=== PATIENT | female | born 1955 | race Caucasian/White ===

== ENCOUNTER 2018-01-26 09:34 | Inpatient (IN) | payer BC ==
[2018-01-26] VITALS (11 sets, daily range): BP systolic 125–155; BP diastolic 58–93; PULSE 89–109; RESP 16–20; TEMP 98.5–101.9; O2SAT 95–98
[~2018-01-26] VITALS: Ht 157.5 cm; Wt 62.5 kg
--- NOTE | 2018-01-26 10:46 | PD ---
HPI Chief Complaint: Complaint Time Seen by Provider: 10:29 Travel History International Travel<30 days: No Contact w/Intl Traveler<30days: No Traveled to known affect area: No History of Present Illness HPI Patient presents to the emergency department for urinary tract infection. I spoke to Morteza Macedo the patient's primary care doctor's nurse practitioner who advised that the patient had a fever of 104 on yesterday and a history of recurrent urinary tract infections. The urine was sent for culture and sensitivity and the sensitivity is only to gentamicin, imipenem, Zosyn, and cefepime. Patient states that she has a history of recurrent urinary tract infections that began in July. Found to be E. coli that that time was treated with Cipro. He came back in September and she was given more Cipro. Return the first week of December she took 7 days of Cipro without relief of symptoms. Positive fever,positive chills, but denies abdominal pain or nausea/ vomiting. 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 PFSH Past Medical History Cardiovascular Problems: Yes High Cholesterol: Yes Diminished Hearing: No Hypertension: Yes ?: Not Menopausal: Yes Past Surgical History Gynecologic Surgery: Yes ("a/p vaginal repair, cystoscopy") Hysterectomy: Yes Social History Alcohol Use: No Tobacco Use: No Substance Use: No Allergies-Medications (Allergen,Severity, Reaction): Coded Allergies: Penicillins (Verified Allergy, Unknown, 01/26/18) "rash head to toe" Sulfa (Sulfonamide Antibiotics) (Verified Allergy, Unknown, 01/26/18) rash "head to Toe" Review of Systems Except as stated in HPI: all other systems reviewed are Neg Physical Exam Narrative GENERAL: No acute distress. SKIN: Focused skin assessment warm/dry. HEAD: Atraumatic. Normocephalic. EYES: Pupils equal and round. No scleral icterus. No injection or drainage. ENT: No nasal bleeding or discharge. Mucous membranes pink and moist. NECK: Trachea midline. No JVD. CARDIOVASCULAR: Regular rate and rhythm. No murmur appreciated. RESPIRATORY: No accessory muscle use. Clear to auscultation. Breath sounds equal bilaterally. GASTROINTESTINAL: Abdomen soft, non-tender, nondistended. Hepatic and splenic margins not palpable. Positive right CVA tenderness. MUSCULOSKELETAL: No obvious deformities. No clubbing. No cyanosis. No edema. NEUROLOGICAL: Awake and alert. No obvious cranial nerve deficits. Motor grossly within normal limits. Normal speech. PSYCHIATRIC: Appropriate mood and affect; insight and judgment normal. Data Data Last Documented VS Vital Signs Date Time Temp Pulse Resp B/P (MAP) Pulse Ox O2 Delivery O2 Flow Rate FiO2 01/26/18 14:11 149/65 (93) 01/26/18 12:30 94 17 96 01/26/18 11:40 101.9 01/26/18 09:45 Room Air Orders Orders Complete Blood Count With Diff (01/26/18 10:40) Comprehensive Metabolic Panel (01/26/18 10:40) Blood Culture (01/26/18 10:40) Urinalysis - C+S If Indicated (01/26/18 10:40) Urine Culture (01/26/18 10:40) Acetaminophen (Tylenol) (01/26/18 11:30) Admit Order (Ed Use Only) (01/26/18 14:34) Sodium Chlor 0.9% 1000 Ml Inj (Ns 1000 M (01/26/18 14:45) Lactic Acid (01/26/18 14:35) Labs Laboratory Tests Test 01/26/18 10:55 01/26/18 13:00 White Blood Count 14.4 TH/MM3 Red Blood Count 4.08 MIL/MM3 Hemoglobin 12.7 GM/DL Hematocrit 37.3 % Mean Corpuscular Volume 91.5 FL Mean Corpuscular Hemoglobin 31.2 PG Mean Corpuscular Hemoglobin Concent 34.1 % Red Cell Distribution Width 12.8 % Platelet Count 456 TH/MM3 Mean Platelet Volume 7.5 FL Neutrophils (%) (Auto) 78.1 % Lymphocytes (%) (Auto) 14.6 % Monocytes (%) (Auto) 6.9 % Eosinophils (%) (Auto) 0.2 % Basophils (%) (Auto) 0.2 % Neutrophils # (Auto) 11.3 TH/MM3 Lymphocytes # (Auto) 2.1 TH/MM3 Monocytes # (Auto) 1.0 TH/MM3 Eosinophils # (Auto) 0.0 TH/MM3 Basophils # (Auto) 0.0 TH/MM3 CBC Comment DIFF FINAL Differential Comment Urine Color YELLOW Urine Turbidity CLEAR Urine pH 7.0 Urine Specific [place] 1.014 Urine Protein TRACE mg/dL Urine Glucose (UA) NEG mg/dL Urine Ketones NEG mg/dL Urine Occult Blood MOD Urine Nitrite NEG Urine Bilirubin NEG Urine Urobilinogen LESS THAN 2.0 MG/DL Urine Leukocyte Esterase NEG Urine RBC 7 /hpf Urine WBC 2 /hpf Urine Squamous Epithelial Cells <1 /hpf Microscopic Urinalysis Comment CULT NOT INDICATED Blood Urea Nitrogen 10 MG/DL Creatinine 0.54 MG/DL Random Glucose 90 MG/DL Total Protein 7.4 GM/DL Albumin 3.4 GM/DL Calcium Level 8.8 MG/DL Alkaline Phosphatase 65 U/L Aspartate Amino Transf (AST/SGOT) 22 U/L Alanine Aminotransferase (ALT/SGPT) 20 U/L Total Bilirubin 0.4 MG/DL Sodium Level 135 MEQ/L Potassium Level 4.1 MEQ/L Chloride Level 100 MEQ/L Carbon Dioxide Level 27.1 MEQ/L Anion Gap 8 MEQ/L Estimat Glomerular Filtration Rate 114 ML/MIN MDM Medical Decision Making Medical Screen Exam Complete: Yes Emergency Medical Condition: Yes Interpretation(s) CBC: Elevated white count, UA: Moderate blood, ECG (ordered by admit MD): SR, rate 92, no ST/T changes Differential Diagnosis Urosepsis, UTI, pyelonephritis, renal failure, acute kidney injury Narrative Course Patient presented to the emergency department with UTI. Will check CBC, blood cultures, UA and urine culture, and chemistry. 1117: Patient requested Tylenol for pain, given 650 mg p.o. Tylenol. 1435: Patient given 1 L IV normal saline, lactate ordered and pending, and 1 g of meropenem IV. 1545: Meropenem infusing. Patient without rash, face/tongue swelling, dyspnea. Sepsis Criteria SIRS Criteria (2 or more): Temp > 100.9 or < 96.8, WBC > 53244, < 4000 or > 10 % bands Sepsis Criteria (SIRS+source): Infect source susp/known Physician Communication Physician Communication Spoke to Mariela Calderon, the patient's primary care physician's mid-level provider. Stated that urine culture sensitivity showed that the urine was sensitive to gentamicin, imipenem, Zosyn, and cefepime. Also advised that patient had a fever 104 yesterday. She started her on Keflex yesterday. Sent urine culture results from primary care doctor's office (urine was collected on 01/23/18 and received by lab on 01/24/18) and was positive for E. coli, ESBL, sensitive to cefepime, gentamicin, imipenem, and Zosyn. Diagnosis Primary Impression: Urinary tract infection Qualified Codes: N10 - Acute pyelonephritis Additional Impression: Sepsis Qualified Codes: A41.51 - Sepsis due to Escherichia coli [e. coli] Admitting Information Admitting Physician Requests: Admit Condition: Stable Pepper Mcgraw MD January 26, 2018 10:46
[2018-01-26 11:25] LABS: AUTOMATED NEUTROPHIL # 11.3 TH/MM3 (1.8-7.7); BASOPHIL % 0.2 % (0.0-2.0); EOSINOPHIL % 0.2 % (0.0-4.0); HEMATOCRIT 37.3 % (35.0-46.0); HEMOGLOBIN 12.7 GM/DL (11.6-15.3); LYMPH % 14.6 % (9.0-44.0); LYMPHOCYTE # 2.1 TH/MM3 (1.0-4.8); MEAN CELL VOLUME 91.5 FL (80.0-100.0); MEAN CORPUSCULAR HEMOGLOBIN 31.2 PG (27.0-34.0); MEAN CORPUSCULAR HGB CONC 34.1 % (32.0-36.0); MEAN PLATELET VOLUME 7.5 FL (7.0-11.0); MONO % 6.9 % (0.0-8.0); NEUT % 78.1 % (16.0-70.0); PLATELET COUNT 456 TH/MM3 (150-450); RED BLOOD COUNT 4.08 MIL/MM3 (4.00-5.30); RED CELL DISTRIBUTION WIDTH 12.8 % (11.6-17.2); WHITE BLOOD COUNT 14.4 TH/MM3 (4.0-11.0)
[2018-01-26] MEDS ORDERED: ACETAMINOPHEN 325 MG TAB PO ONE (11:30)
[2018-01-26 11:34] LABS: BILIRUBIN, URINE NEG (NEG); BLOOD, URINE MOD (NEG); GLUCOSE,URINE NEG (NEG); KETONE, URINE NEG (NEG); NITRITE,URINE NEG (NEG); SQUAMOUS EPITHELIAL CELL URINE <1 /hpf (0-5); URINE COLOR YELLOW (YELLW/STRAW); URINE LEUKOCYTE ESTERASE NEG (NEG)
[2018-01-26 13:34] LABS: ALKALINE PHOSPHATASE 65 U/L (45-117); TOTAL BILIRUBIN ADULT 0.4 MG/DL (0.2-1.0); TOTAL PROTEIN 7.4 GM/DL (6.4-8.2)
[2018-01-26 13:50] LABS: ALBUMIN 3.4 GM/DL (3.4-5.0); ALT (GPT) 20 U/L (10-53); AST (GOT) 22 U/L (15-37); BICARBONATE 27.1 MEQ/L (21.0-32.0); BLOOD UREA NITROGEN 10 MG/DL (7-18); CALCIUM 8.8 MG/DL (8.5-10.1); CHLORIDE 100 MEQ/L (98-107); CREATININE 0.54 MG/DL (0.50-1.00); GLOMERULAR FILTRATION RATE 114 ML/MIN (>89); GLUCOSE,RANDOM 90 MG/DL (74-106); SODIUM (NA) 135 MEQ/L (136-145)
[2018-01-26] MEDS: SODIUM CHLOR 0.9% 1000 ML INJ 1,000 ML IV SCH (14:31)
[2018-01-26] MEDS ORDERED: NALOXONE HCL 0.4 MG/ML AMP IV PUSH PRN (14:45)
[2018-01-26] MEDS ORDERED: MEROPENEM 1000 MG VIAL IV ONE (14:45)
[2018-01-26] MEDS ORDERED: SODIUM CHLOR 0.9% 1000 ML INJ 1,000 ML IV ONE (14:45)
[2018-01-26] MEDS ORDERED: LACTULOSE SYRUP 20 GM/30 ML CUP PO PRN (14:45)
[2018-01-26] MEDS ORDERED: ONDANSETRON HCL 4 MG/2 ML VIAL IVP PRN (14:45)
[2018-01-26] MEDS ORDERED: SODIUM CHLORIDE 0.9% FLUSH 10 ML FLUSH IV FLUSH PRN (14:45)
[2018-01-26] MEDS ORDERED: BISACODYL 10 MG SUPP RECTAL PRN (14:45)
[2018-01-26] MEDS ORDERED: SENNOSIDES 8.6 MG TAB PO PRN (14:45)
[2018-01-26] MEDS ORDERED: MAGNESIUM HYDROXIDE SUSP 30 ML CUP PO PRN (14:45)
[2018-01-26] MEDS ORDERED: MEROPENEM 1000 MG/NS 100 ML IV ONE ×2 (15:00)
[2018-01-26] MEDS: ACETAMINOPHEN 325 MG TAB PO PRN ×2 (15:48→21:40)
[2018-01-26] MEDS: HEPARIN SODIUM - SQ 10,000 UNITS/ML VIAL SQ SCH (15:54)
[2018-01-26] MEDS ORDERED: diphenhydrAMINE HCL 50 MG/ML VIAL ONE (18:55)
[2018-01-26] MEDS: DOCUSATE SODIUM 50 MG/SENNA 8.6 MG TAB PO SCH (21:00)
[2018-01-26] MEDS: SODIUM CHLORIDE 0.9% FLUSH 10 ML FLUSH IV FLUSH SCH (21:40)
--- NOTE | 2018-01-26 23:11 | HHI.HP ---
HPI Service [facility] Primary Care Physician IVANNA Knight Admission Diagnosis urosepsis Diagnoses: Chief Complaint: Fevers, chills Travel History International Travel<30 Days: No Contact w/Intl Traveler <30 Da: No Traveled to Known Affected Are: No Sepsis Criteria SIRS Criteria (2 or more): Temp > 100.9 or < 96.8, Heart rate over 90, WBC > 30386, < 4000 or > 10% bands Sepsis Criteria (SIRS+source): Infect source susp/known History of Present Illness This is a 62-year-old female with past medical history significant for been poor with only the right kidney who presents to [facility] complaining of fevers and chills. The patient's states that back in July 2017 she had a UTI in which at that time E. coli was diagnosed. The patient was treated with ciprofloxacin. The patient states after that she had a repeat urinary tract infection in September 2017 for which he took ciprofloxacin treatment again. The patient states that she had recently moved to the area back in November of this year. The patient states she had some ciprofloxacin at home which he took. However she states that she started feeling aches and fevers, general malaise, fatigue and went to see her primary doctor. At that time a urine culture was obtained. The patient states that she went home however yesterday she had a temperature of 10 4F along with chills. The patient denies any nausea or vomiting. Per my discussion of the case with the ED department physician, she states that she saw the results of the urine culture and it showed ESBL E. coli. The patient otherwise denies any chest pain , shortness of breath, abdominal pain, nausea, vomiting, diarrhea. Review of Systems As per HPI, other systems reviewed by me and negative. Past Family Social History Past Medical History Both with only one kidney -right. Past Surgical History 1. Hysterectomy in 2006. 2. Bladder suspension thousand 16. 3. Right thumb surgery. Reported Medications None reported Allergies: Coded Allergies: Penicillins (Verified Allergy, Unknown, 01/26/18) "rash head to toe" Sulfa (Sulfonamide Antibiotics) (Verified Allergy, Unknown, 01/26/18) rash "head to Toe" Active Ordered Medications Current Medications Medications (Trade) Dose Ordered Sig/Trip Route Start Time Stop Time Status Last Admin Sodium Chloride 1,000 ml @ 100 mls/hr Q10H IV 01/26/18 14:31 01/26/18 14:31 (NS Flush) 2 ml UNSCH PRN IV FLUSH 01/26/18 14:45 (NS Flush) 2 ml BID IV FLUSH 01/26/18 21:00 01/26/18 21:40 (Tylenol) 650 mg Q4H PRN PO 01/26/18 14:45 01/26/18 21:40 (Zofran Inj) 4 mg Q6H PRN IVP 01/26/18 14:45 (Heparin Inj) 5,000 units Q8H SQ 01/26/18 16:00 01/26/18 15:54 (Narcan Inj) 0.4 mg UNSCH PRN IV PUSH 01/26/18 14:45 (Ghislaine-Colace) 1 tab BID PO 01/26/18 21:00 (Milk Of Magnesia Liq) 30 ml Q12H PRN PO 01/26/18 14:45 (Senokot) 17.2 mg Q12H PRN PO 01/26/18 14:45 (Dulcolax Supp) 10 mg DAILY PRN RECTAL 01/26/18 14:45 (Lactulose Liq) 30 ml DAILY PRN PO 01/26/18 14:45 Family History Denies family history of heart disease, diabetes or cancer. Social History The patient denies smoking, using alcohol or illegal drugs. Physical Exam Vital Signs Vital Signs Date Time Temp Pulse Resp B/P (MAP) Pulse Ox O2 Delivery O2 Flow Rate FiO2 01/26/18 21:30 100.4 01/26/18 19:41 01/26/18 16:50 100.8 97 18 136/65 (88) 01/26/18 15:48 100.7 01/26/18 15:02 99.0 94 19 147/67 (93) 97 Room Air 01/26/18 14:11 149/65 (93) 01/26/18 12:30 94 17 96 01/26/18 11:40 101.9 94 16 142/70 (94) 98 01/26/18 09:45 99.3 91 18 155/74 (101) 98 Room Air 01/26/18 09:36 99.4 89 20 141/65 (90) 97 Physical Exam GENERAL: This is a well-nourished, well-developed patient, in no apparent distress. SKIN: No rashes, ecchymoses or lesions. Cool and dry. HEAD: Atraumatic. Normocephalic. No temporal or scalp tenderness. EYES: Pupils equal round and reactive. Extraocular motions intact. No scleral icterus. No injection or drainage. ENT: Nose without bleeding, purulent drainage or septal hematoma. Throat without erythema, tonsillar hypertrophy or exudate. Uvula midline. Airway patent. NECK: Trachea midline. No JVD or lymphadenopathy. Supple, nontender, no meningeal signs. CARDIOVASCULAR: Regular rate and rhythm without murmurs, gallops, or rubs. RESPIRATORY: Clear to auscultation. Breath sounds equal bilaterally. No wheezes , rales, or rhonchi. GASTROINTESTINAL: Abdomen soft, non-tender, nondistended. No hepato-splenomegaly , or palpable masses. No guarding. MUSCULOSKELETAL: Extremities without clubbing, cyanosis, or edema. No joint tenderness, effusion, or edema noted. No calf tenderness. Negative Homans sign bilaterally. NEUROLOGICAL: Awake and alert. Cranial nerves II through XII intact. Motor and sensory grossly within normal limits. Five out of 5 muscle strength in all muscle groups. Normal speech. Laboratory Laboratory Tests Test 01/26/18 10:55 01/26/18 13:00 01/26/18 14:58 White Blood Count 14.4 Red Blood Count 4.08 Hemoglobin 12.7 Hematocrit 37.3 Mean Corpuscular Volume 91.5 Mean Corpuscular Hemoglobin 31.2 Mean Corpuscular Hemoglobin Concent 34.1 Red Cell Distribution Width 12.8 Platelet Count 456 Mean Platelet Volume 7.5 Neutrophils (%) (Auto) 78.1 Lymphocytes (%) (Auto) 14.6 Monocytes (%) (Auto) 6.9 Eosinophils (%) (Auto) 0.2 Basophils (%) (Auto) 0.2 Neutrophils # (Auto) 11.3 Lymphocytes # (Auto) 2.1 Monocytes # (Auto) 1.0 Eosinophils # (Auto) 0.0 Basophils # (Auto) 0.0 CBC Comment DIFF FINAL Differential Comment Urine Color YELLOW Urine Turbidity CLEAR Urine pH 7.0 Urine Specific [place] 1.014 Urine Protein TRACE Urine Glucose (UA) NEG Urine Ketones NEG Urine Occult Blood MOD Urine Nitrite NEG Urine Bilirubin NEG Urine Urobilinogen LESS THAN 2.0 Urine Leukocyte Esterase NEG Urine RBC 7 Urine WBC 2 Urine Squamous Epithelial Cells <1 Microscopic Urinalysis Comment CULT NOT INDICATED Blood Urea Nitrogen 10 Creatinine 0.54 Random Glucose 90 Total Protein 7.4 Albumin 3.4 Calcium Level 8.8 Alkaline Phosphatase 65 Aspartate Amino Transf (AST/SGOT) 22 Alanine Aminotransferase (ALT/SGPT) 20 Total Bilirubin 0.4 Sodium Level 135 Potassium Level 4.1 Chloride Level 100 Carbon Dioxide Level 27.1 Anion Gap 8 Estimat Glomerular Filtration Rate 114 Lactic Acid Level 1.1 Date/Time Source Procedure Growth Status 01/26/18 11:05 Blood Peripheral Aerobic Blood Culture Pending Received 01/26/18 11:05 Blood Peripheral Anaerobic Blood Culture Pending Received 01/26/18 10:55 Urine Clean Catch Urine Culture Pending Received Result Diagram: 01/26/18 1055 01/26/18 1300 Caprini VTE Risk Assessment Caprini VTE Risk Assessment: Mod/High Risk (score >= 2) Caprini Risk Assessment Model Point Value = 1 Point Value = 2 Point Value = 3 Point Value = 5 Age 41-60 Minor surgery BMI > 25 kg/m2 Swollen legs Varicose veins or History of unexplained or recurrent spontaneous Oral contraceptives or hormone replacement Sepsis (< 1 month) Serious lung disease, including pneumonia (< 1 month) Abnormal pulmonary function Acute myocardial infarction Congestive heart failure (< 1 month) History of inflammatory bowel disease Medical patient at bed rest Age 61-74 Arthroscopic surgery Major open surgery (> 45 min) Laparoscopic surgery (> 45 min) Malignancy Confined to bed (> 72 hours) Immobilizing plaster cast Central venous access Age >= 75 History of VTE Family history of VTE Factor V Leiden Prothrombin [id number] Lupus anticoagulant Anticardiolipin antibodies Elevated serum homocysteine Heparin-induced thrombocytopenia Other congenital or acquired thrombophilia Stroke (< 1 month) Elective arthroplasty Hip, pelvis, or leg fracture Acute spinal cord injury (< 1 month) Prophylaxis Regimen Total Risk Factor Score Risk Level Prophylaxis Regimen 0-1 Low Early ambulation 2 Moderate Order ONE of the following: *Sequential Compression Device (SCD) *Heparin 5000 units SQ BID 3-4 Higher Order ONE of the following medications: *Heparin 5000 units SQ TID *Enoxaparin/Lovenox 40 mg SQ daily (WT < 150 kg, CrCl > 30 mL/min) *Enoxaparin/Lovenox 30 mg SQ daily (WT < 150 kg, CrCl > 10-29 mL/min) *Enoxaparin/Lovenox 30 mg SQ BID (WT < 150 kg, CrCl > 30 mL/min) AND/OR *Sequential Compression Device (SCD) 5 or more Highest Order ONE of the following medications: *Heparin 5000 units SQ TID (Preferred with Epidurals) *Enoxaparin/Lovenox 40 mg SQ daily (WT < 150 kg, CrCl > 30 mL/min) *Enoxaparin/Lovenox 30 mg SQ daily (WT < 150 kg, CrCl > 10-29 mL/min) *Enoxaparin/Lovenox 30 mg SQ BID (WT < 150 kg, CrCl > 30 mL/min) AND *Sequential Compression Device (SCD) Assessment and Plan Problem List: (1) Sepsis ICD Code: A41.9 - Sepsis, unspecified organism Status: Acute (2) Urinary tract infection ICD Code: N39.0 - Urinary tract infection, site not specified Status: Acute Assessment and Plan Patient meets sepsis criteria with fever, heart rate more than 90 and leukocytosis. Patient had a urine culture reportedly ESBL E. coli positive. I will start the patient on IV meropenem. ID consult. IV fluids Monitor CBC with differential Acetaminophen as needed for fever Zofran as needed for nausea. Code Status Full code Discussed Condition With Patient, ED physician, RN. Physician Certification 2 Midnight Certification Type: Admission for Inpatient Services Order for Inpatient Services The services are ordered in accordance with Medicare regulations or non- Medicare payer requirements, as applicable. In the case of services not specified as inpatient-only, they are appropriately provided as inpatient services in accordance with the 2-midnight benchmark. Estimated LOS (days): 2 days is the estimated time the patient will need to remain in the hospital, assuming treatment plan goals are met and no additional complications. Post-Hospital Plan: Home Problem Qualifiers (1) Sepsis: Qualified Codes: A41.51 - Sepsis due to Escherichia coli [e. coli] (2) Urinary tract infection: Qualified Codes: N10 - Acute pyelonephritis Phillip Castaneda MD January 26, 2018 23:11
[2018-01-27] VITALS (9 sets, daily range): BP systolic 111–131; BP diastolic 56–75; PULSE 77–108; RESP 18; TEMP 98–100.6; O2SAT 95–98
[2018-01-27] MEDS: SODIUM CHLOR 0.9% 1000 ML INJ 1,000 ML IV SCH (00:56)
[2018-01-27] MEDS: ACETAMINOPHEN 325 MG TAB PO PRN (04:10)
[2018-01-27 07:30] LABS: AUTOMATED NEUTROPHIL # 6.8 TH/MM3 (1.8-7.7); BASOPHIL % 0.3 % (0.0-2.0); EOSINOPHIL % 0.3 % (0.0-4.0); HEMATOCRIT 30.2 % (35.0-46.0); HEMOGLOBIN 10.7 GM/DL (11.6-15.3); LYMPH % 25.9 % (9.0-44.0); LYMPHOCYTE # 2.7 TH/MM3 (1.0-4.8); MEAN CORPUSCULAR HEMOGLOBIN 31.8 PG (27.0-34.0); MEAN CORPUSCULAR HGB CONC 35.3 % (32.0-36.0); MONO % 7.7 % (0.0-8.0); MONOCYTE # 0.8 TH/MM3 (0-0.9); NEUT % 65.8 % (16.0-70.0); PLATELET COUNT 419 TH/MM3 (150-450); RED BLOOD COUNT 3.36 MIL/MM3 (4.00-5.30); RED CELL DISTRIBUTION WIDTH 12.3 % (11.6-17.2); WHITE BLOOD COUNT 10.3 TH/MM3 (4.0-11.0)
[2018-01-27] MEDS: HEPARIN SODIUM - SQ 10,000 UNITS/ML VIAL SQ SCH ×3 (08:00→16:00)
[2018-01-27 08:04] LABS: ALBUMIN 2.5 GM/DL (3.4-5.0); BICARBONATE 23.7 MEQ/L (21.0-32.0); CALCIUM 7.2 MG/DL (8.5-10.1); CALCIUM-PROTEIN CORRECTED 7.8 MG/DL (8.5-10.1); CREATININE 0.4 MG/DL (0.50-1.00); TOTAL BILIRUBIN ADULT 0.3 MG/DL (0.2-1.0); TOTAL PROTEIN 5.9 GM/DL (6.4-8.2)
[2018-01-27] MEDS: SODIUM CHLORIDE 0.9% FLUSH 10 ML FLUSH IV FLUSH SCH ×2 (08:11→21:09)
[2018-01-27] MEDS: DOCUSATE SODIUM 50 MG/SENNA 8.6 MG TAB PO SCH ×2 (08:11→21:00)
--- NOTE | 2018-01-27 09:07 | HHI.PR ---
Subjective Remarks Follow-up sepsis and UTI. States she is not feeling great. Refused heparin DVT prophylaxis dose. Agrees to proceed with CT of the abdomen pelvis as ordered by infectious disease. Objective Vitals Vital Signs Date Time Temp Pulse Resp B/P (MAP) Pulse Ox O2 Delivery O2 Flow Rate FiO2 01/27/18 08:00 98.4 77 18 111/56 (74) 96 01/27/18 06:44 98.8 01/27/18 04:05 100.6 91 18 121/60 (80) 95 01/27/18 02:44 99.7 01/27/18 00:00 98.6 87 18 122/57 (78) 95 01/26/18 21:30 100.4 01/26/18 20:00 98.5 95 18 125/58 (80) 97 01/26/18 19:41 01/26/18 16:50 100.8 97 18 136/65 (88) 01/26/18 15:48 100.7 01/26/18 15:02 99.0 94 19 147/67 (93) 97 Room Air 01/26/18 14:11 149/65 (93) 01/26/18 12:30 94 17 96 01/26/18 11:40 101.9 94 16 142/70 (94) 98 01/26/18 09:45 99.3 91 18 155/74 (101) 98 Room Air 01/26/18 09:36 99.4 89 20 141/65 (90) 97 I/O 01/26/18 01/26/18 01/26/18 01/27/18 01/27/18 01/27/18 07:00 15:00 23:00 07:00 15:00 23:00 Intake Total 1200 ml Balance 1200 ml Intake IV Total 1200 ml # Voids 2 Result Diagram: 01/27/1813 01/27/18 06 Objective Remarks GENERAL: This is a well-nourished, well-developed patient, in no apparent distress. SKIN: No rashes, ecchymoses or lesions. Cool and dry. CARDIOVASCULAR: Regular rate and rhythm without murmurs, gallops, or rubs. RESPIRATORY: Clear to auscultation. Breath sounds equal bilaterally. No wheezes , rales, or rhonchi. GASTROINTESTINAL: Abdomen soft, non-tender, nondistended. No guarding. No CVA tenderness MUSCULOSKELETAL: Extremities without clubbing, cyanosis, or edema. No joint tenderness, effusion, or edema noted. No calf tenderness. Negative Homans sign bilaterally. NEUROLOGICAL: Awake and alert. Cranial nerves II through XII intact. Motor and sensory grossly within normal limits. Five out of 5 muscle strength in all muscle groups. Normal speech. Procedures none A/P Problem List: (1) Sepsis ICD Code: A41.9 - Sepsis, unspecified organism Status: Acute (2) Urinary tract infection ICD Code: N39.0 - Urinary tract infection, site not specified Status: Acute Assessment and Plan Sepsis Urinary tract infection IPatient meets sepsis criteria with fever, heart rate more than 90 and leukocytosis. Patient had a urine culture reportedly ESBL E. coli positive. History of penicillin and sulfa received Merrem in the ED ID consult. IV fluids Monitor CBC with differential Acetaminophen as needed for fever Zofran as needed for nausea. Anemia without acute blood loss. Likely dilutional repeat CBC in the morning Hypokalemia. Replace with 30 M EQ potassium p.o. 1. Check magnesium. Repeat BMP and magnesium in the morning DVT prophylaxis with subcu heparin Problem Qualifiers (1) Sepsis: Qualified Codes: A41.51 - Sepsis due to Escherichia coli [e. coli] (2) Urinary tract infection: Qualified Codes: N10 - Acute pyelonephritis Adolfo Jackson MD January 27, 2018 09:07
[2018-01-27] MEDS ORDERED: POTASSIUM CHLORIDE 10 MEQ CONTROLLED RELEASE TAB PO ONE (09:15)
[2018-01-27] MEDS: NS + KCL 20 MEQ INJ 1,000 ML IV SCH (10:26)
[2018-01-27] MEDS ORDERED: ASP: Documented ESBL, MDR A baumannii or P. aeruginosa PRN (10:45)
[2018-01-27] MEDS ORDERED: PHARMACY INFORMATION XX PRN (10:45)
--- NOTE | 2018-01-27 10:59 | PD.CONS ---
History of Present Illness Service Infectious disease Consult Requested By Dr Cristal Jackson Reason for Consult Evaluate patient with UTI, ESBL positive Primary Care Physician IVANNA Knight Diagnoses: History of Present Illness Patient seen and examined. Records reviewed. Patient is a 62-year-old female, presented to the hospital per instructions by her primary care physician for further treatment of her urinary tract infection. According to the patient last July when she had surgery on her right hand, there was a urine culture done at that time which had E. coli. She was asymptomatic, and received 1 week of Cipro. After that surgery she had a bout of urinary tract infection, and this time she had some dysuria, and some fever and chills. She was again given Cipro. There was no culture done at that time. Patient moved to [place] last December, and she had her symptoms again , and she took some leftover Cipro with some mild improvement in her symptoms. She did not seek any medical help because at that time her insurance was not transferred over to [place]. It eventually got transferred, and she started having recurrent symptoms about a week prior to admission. She was having fever and chills, documented up to 104. She also did not have any dysuria, but had some urgency, and had occasional mild incontinence. She saw her primary care physician about 4 days prior to admission, and urine culture was done. She was given Keflex. The day prior to admission, patient was called and told to go to the hospital because her urine culture is growing a resistant bacteria. Patient is still having fevers. Her WBC was 14,000. She denies any hematuria. Denies any back pain, nausea or vomiting. Patient only has one kidney on the right Infectious disease consultation has been requested to evaluate the patient and assist with treatment. Review of Systems Constitutional: COMPLAINS OF: Fever, Chills Eyes: DENIES: Eye pain Ears, nose, mouth, throat: DENIES: Nasal discharge, Oral lesions, Throat pain, Ear Pain, Sinus Pain Respiratory: DENIES: Cough, Shortness of breath Cardiovascular: DENIES: Chest pain, Palpitations, Syncope, Dyspnea on Exertion , Lower Extremity Edema Gastrointestinal: DENIES: Abdominal pain, Diarrhea, Nausea, Vomiting, Difficulty Swallowing Genitourinary: COMPLAINS OF: Urinary frequency, Urinary incontinence, Urgency, DENIES: Sexual dysfunction, Dysuria Musculoskeletal: DENIES: Joint pain, Joint Swelling, Back pain Integumentary: DENIES: Rash Hematologic/lymphatic: DENIES: Lymphadenopathy Immunologic/allergic: DENIES: Urticaria Neurologic: DENIES: Localized weakness Psychiatric: DENIES: Hallucinations Past Family Social History Allergies: Coded Allergies: Penicillins (Verified Allergy, Unknown, 01/26/18) "rash head to toe" Sulfa (Sulfonamide Antibiotics) (Verified Allergy, Unknown, 01/26/18) rash "head to Toe" Past Medical History Congenital 1 kidney Vaginal prolapse Recurrent UTI since July 2017 Past Surgical History Hysterectomy in 2005. Had vaginal prolapse at that time Recurrent vaginal prolapse, repeat surgery in 2016 Right thumb surgery. Active Ordered Medications Current Medications Medications (Trade) Dose Ordered Sig/Trip Route Start Time Stop Time Status Last Admin (NS Flush) 2 ml UNSCH PRN IV FLUSH 01/26/18 14:45 (NS Flush) 2 ml BID IV FLUSH 01/26/18 21:00 01/27/18 08:11 (Tylenol) 650 mg Q4H PRN PO 01/26/18 14:45 01/27/18 04:10 (Zofran Inj) 4 mg Q6H PRN IVP 01/26/18 14:45 (Heparin Inj) 5,000 units Q8H SQ 01/26/18 16:00 01/26/18 15:54 (Narcan Inj) 0.4 mg UNSCH PRN IV PUSH 01/26/18 14:45 (Ghislaine-Colace) 1 tab BID PO 01/26/18 21:00 (Milk Of Magnesia Liq) 30 ml Q12H PRN PO 01/26/18 14:45 (Senokot) 17.2 mg Q12H PRN PO 01/26/18 14:45 (Dulcolax Supp) 10 mg DAILY PRN RECTAL 01/26/18 14:45 (Lactulose Liq) 30 ml DAILY PRN PO 01/26/18 14:45 Potassium Chloride/Sodium Chloride 1,000 ml @ 60 mls/hr [id number] IV 01/27/18 10:00 01/27/18 10:26 (ASP Crit: Doc ESBL, MDR A baumannii or P aer) 1 UNSCH X1 PRN .XX 01/27/18 10:45 01/28/18 10:44 ([facility] [place] [facility]) 1 UNSCH X1 PRN XX 01/27/18 10:45 01/28/18 10:44 Meropenem 1000 mg/ Sodium Chloride 100 ml @ 200 mls/hr Q8H IV 01/27/18 12:00 Family History Noncontributory Social History Denies smoking Denies EtOH abuse No illicit drugs Physical Exam Vital Signs Vital Signs Date Time Temp Pulse Resp B/P (MAP) Pulse Ox O2 Delivery O2 Flow Rate FiO2 01/27/18 08:00 98.4 77 18 111/56 (74) 96 01/27/18 06:44 98.8 01/27/18 04:05 100.6 91 18 121/60 (80) 95 01/27/18 02:44 99.7 01/27/18 00:00 98.6 87 18 122/57 (78) 95 01/26/18 21:30 100.4 01/26/18 20:00 98.5 95 18 125/58 (80) 97 01/26/18 19:41 01/26/18 16:50 100.8 97 18 136/65 (88) 01/26/18 15:48 100.7 01/26/18 15:02 99.0 94 19 147/67 (93) 97 Room Air 01/26/18 14:11 149/65 (93) 01/26/18 12:30 94 17 96 01/26/18 11:40 101.9 94 16 142/70 (94) 98 Physical Exam GENERAL: Patient is a well-nourished, well-developed female, awake and alert , not in respiratory distress. SKIN: Warm and dry. No generalized rash, no ecchymoses and no evidence of embolic lesions. HEAD: Atraumatic. Normocephalic. No temporal wasting, or tenderness. EYES: [place] conjunctiva. No petechia or hemorrhage. Pupils equal, round and reactive to light. Extraocular movements full and intact. No scleral icterus. No injection or drainage. EARS, NOSE AND THROAT: Nose without bleeding or purulent nasal discharge. No sinus tenderness. Mucous membranes pink and moist. No oral lesions noted. No exudate. No oral thrush. NECK: Trachea midline. Supple and not tender, no meningeal signs CARDIOVASCULAR: Regular rate and rhythm. No murmurs, rubs or gallops heard RESPIRATORY: Clear to auscultation. Breath sounds equal bilaterally. No rales , wheezing or rhonchi ABDOMEN: Soft, non-tender, nondistended. Bowel sounds present and normoactive. No guarding. No rebound. No organomegaly. No bladder distension BACK: No CVA tenderness EXTREMITIES: No clubbing, cyanosis, or edema.No joint effusion, has good ROM. No calf tenderness. Well perfused and warm. NEUROLOGICAL: Awake and alert. Cranial nerves grossly intact. Motor grossly within normal limits. PSYCHIATRIC: Normal affect, calm and cooperative. LINE: No evidence of infection Laboratory Laboratory Tests Test 01/26/18 10:55 01/26/18 13:00 01/26/18 14:58 01/27/18 06:13 White Blood Count 14.4 10.3 Red Blood Count 4.08 3.36 Hemoglobin 12.7 10.7 Hematocrit 37.3 30.2 Mean Corpuscular Volume 91.5 90.0 Mean Corpuscular Hemoglobin 31.2 31.8 Mean Corpuscular Hemoglobin Concent 34.1 35.3 Red Cell Distribution Width 12.8 12.3 Platelet Count 456 419 Mean Platelet Volume 7.5 7.0 Neutrophils (%) (Auto) 78.1 65.8 Lymphocytes (%) (Auto) 14.6 25.9 Monocytes (%) (Auto) 6.9 7.7 Eosinophils (%) (Auto) 0.2 0.3 Basophils (%) (Auto) 0.2 0.3 Neutrophils # (Auto) 11.3 6.8 Lymphocytes # (Auto) 2.1 2.7 Monocytes # (Auto) 1.0 0.8 Eosinophils # (Auto) 0.0 0.0 Basophils # (Auto) 0.0 0.0 CBC Comment DIFF FINAL DIFF FINAL Differential Comment Urine Color YELLOW Urine Turbidity CLEAR Urine pH 7.0 Urine Specific [place] 1.014 Urine Protein TRACE Urine Glucose (UA) NEG Urine Ketones NEG Urine Occult Blood MOD Urine Nitrite NEG Urine Bilirubin NEG Urine Urobilinogen LESS THAN 2.0 Urine Leukocyte Esterase NEG Urine RBC 7 Urine WBC 2 Urine Squamous Epithelial Cells <1 Microscopic Urinalysis Comment CULT NOT INDICATED Blood Urea Nitrogen 10 5 Creatinine 0.54 0.40 Random Glucose 90 95 Total Protein 7.4 5.9 Albumin 3.4 2.5 Calcium Level 8.8 7.2 Alkaline Phosphatase 65 52 Aspartate Amino Transf (AST/SGOT) 22 9 Alanine Aminotransferase (ALT/SGPT) 20 12 Total Bilirubin 0.4 0.3 Sodium Level 135 142 Potassium Level 4.1 3.4 Chloride Level 100 110 Carbon Dioxide Level 27.1 23.7 Anion Gap 8 8 Estimat Glomerular Filtration Rate 114 161 Lactic Acid Level 1.1 Protein Corrected Calcium 7.8 Magnesium Level 1.7 Date/Time Source Procedure Growth Status 01/26/18 11:05 Blood Peripheral Aerobic Blood Culture Pending Received 01/26/18 11:05 Blood Peripheral Anaerobic Blood Culture Pending Received 01/26/18 10:55 Urine Clean Catch Urine Culture Pending Received Result Diagram: 01/27/1861201/27/1813 Assessment and Plan Assessment and Plan IMPRESSION Febrile illness, with complaints - current UA is unremarkable - has one kidney - ?complicated UTI, obstruction (however would expect creatinine higher if obstructed and has one kidney) - per Hx UC with Ecoli ESBL+ from 01/23 - LFT ok, no respiratory symptoms Rash with PCN and Sulfa, tolerates cephalosporins RECOMMENDATION Get UC report CT A/P Bladder scan Follow C/S Continue Meropenem to cover E coli ESBL(+) Follow C/S Follow temps Monitor progress I will follow along with you Thank you for this consultation Discussed Condition With Explained plan to the patient Dr Steve covering this weekend Samantha Tamayo MD January 27, 2018 10:59
[2018-01-27] MEDS ORDERED: DIATRIZOATE MEGLUM/DIATRIZOATE SOD 9 ML CUP PO ONE (11:30)
[2018-01-27] MEDS: MEROPENEM INJ 1,000 MG in SODIUM CHLORIDE 0.9% INJ 100 ML IV SCH ×2 (12:14→21:09)
[2018-01-27] MEDS ORDERED: IOHEXOL 350 MG/ML 10 ML VIAL (for RAD DIAG) IVCONTRAST ONE (15:48)
--- NOTE | 2018-01-27 16:03 | RADRPT ---
EXAM DATE/TIME: 01/27/2018 15:38 [facility] COMPARISON: No previous studies available for comparison. INDICATIONS : Urosepsis, abdominal pain IV CONTRAST: 95 cc Omnipaque 350 (iohexol) IV ORAL CONTRAST: Prescribed oral contrast ingested. RADIATION DOSE: 5.41 CTDIvol (mGy) MEDICAL HISTORY : Cardiovascular disease. Hypertension. [place] skin cancer SURGICAL HISTORY : Hysterectomy. ENCOUNTER: Initial ACUITY: 1 day PAIN SCALE: 2/10 LOCATION: Bilateral Abdomen TECHNIQUE: Volumetric scanning of the abdomen and pelvis was performed. Using automated exposure control and ad justment of the mA and/or kV according to patient size, radiation dose was kept as low as reasonably achievable to obtain optimal diagnostic quality images. DICOM format image data is available electro nically for review and comparison. FINDINGS: LOWER LUNGS: The visualized lower lungs are clear. LIVER: Homogeneous density without lesion. There is no dilation of the biliary tree. No calcified [place] es. SPLEEN: Normal size without lesion. PANCREAS: Within normal limits. KIDNEYS: Left kidney is surgically absent. Right kidney is notable for a small area of focal cortical loss in the anterior upper pole region which appears chronic. There is a vague slightly greater than 1 cm are a of diminished cortical density and exophytic stranding in the medial lower pole region which could be a small mass or a focus of pyelonephritis. Followup of this after appropriate treatment would be s uggested. There is no evidence of hydronephrosis or stone. ADRENAL GLANDS: Within normal limits. VASCULAR: There is no aortic aneurysm. BOWEL/MESENTERY: The stomach, small bowel, and colon demonstrate no acute abnormality. There is no free intraperitone al air or fluid. ABDOMINAL WALL: Within normal limits. RETROPERITONEUM: There is no lymphadenopathy. BLADDER: No wall thickening or mass. REPRODUCTIVE: Uterus is surgically absent. No evidence of pelvic mass or free fluid. INGUINAL: There is no lymphadenopathy or hernia. MUSCULOSKELETAL: Within normal limits for patient age. CONCLUSION: Single kidney notable for a small nonspecific focus of diminished density and adjacent stranding invo lving the lower pole medial cortex with discussion as above. Jon Nugent MD on January 27, 2018 at 15:55 Board Certified Radiologist. This report was verified electronically.
[2018-01-28] MEDS: MEROPENEM INJ 1,000 MG in SODIUM CHLORIDE 0.9% INJ 100 ML IV SCH ×3 (05:10→20:26)
[2018-01-28] MEDS: NS + KCL 20 MEQ INJ 1,000 ML IV SCH (05:11)
[2018-01-28 06:00] VITALS: BP 122/62; PULSE 82; RESP 16; TEMP 98.6; O2SAT 97
[2018-01-28 07:26] LABS: AUTOMATED NEUTROPHIL # 5.3 TH/MM3 (1.8-7.7); BASOPHIL % 0.5 % (0.0-2.0); EOSINOPHIL # 0.1 TH/MM3 (0-0.4); EOSINOPHIL % 1.1 % (0.0-4.0); HEMOGLOBIN 12.1 GM/DL (11.6-15.3); LYMPH % 34.2 % (9.0-44.0); LYMPHOCYTE # 3.1 TH/MM3 (1.0-4.8); MEAN CELL VOLUME 90.8 FL (80.0-100.0); MEAN CORPUSCULAR HEMOGLOBIN 31.4 PG (27.0-34.0); MEAN CORPUSCULAR HGB CONC 34.5 % (32.0-36.0); MEAN PLATELET VOLUME 7.1 FL (7.0-11.0); MONO % 6.3 % (0.0-8.0); MONOCYTE # 0.6 TH/MM3 (0-0.9); NEUT % 57.9 % (16.0-70.0); PLATELET COUNT 454 TH/MM3 (150-450); RED BLOOD COUNT 3.85 MIL/MM3 (4.00-5.30); RED CELL DISTRIBUTION WIDTH 12.3 % (11.6-17.2); WHITE BLOOD COUNT 9.2 TH/MM3 (4.0-11.0)
[2018-01-28] MEDS: HEPARIN SODIUM - SQ 10,000 UNITS/ML VIAL SQ SCH ×2 (08:00)
[2018-01-28 08:38] LABS: CALCIUM 8.6 MG/DL (8.5-10.1); CREATININE 0.49 MG/DL (0.50-1.00)
--- NOTE | 2018-01-28 08:44 | EKG ---
Date Performed: 01/26/2018 Time Performed: 15:13:43 PTAGE: 62 years EKG: Sinus rhythm NORMAL ECG NO PREVIOUS TRACING DOCTOR: Mago Cooper Interpretating Date/Time 01/28/2018 08:40:26
[2018-01-28] MEDS: SODIUM CHLORIDE 0.9% FLUSH 10 ML FLUSH IV FLUSH SCH ×2 (09:00→20:27)
[2018-01-28] MEDS: DOCUSATE SODIUM 50 MG/SENNA 8.6 MG TAB PO SCH ×2 (09:00→20:27)
[2018-01-28 12:53] VITALS: BP 122/59; PULSE 87; RESP 20; TEMP 98.8; O2SAT 96
[2018-01-28 12:54] VITALS: BP 123/62; PULSE 85; RESP 20; TEMP 99; O2SAT 97
--- NOTE | 2018-01-28 13:24 | HHI.IDPN ---
Note Infectious Disease Note ID coverage. Notes reviewed. She says she feels well. She had a low-grade fever yesterday evening Denies abdominal pain. CT scan of the abdomen and pelvis shows stranding at the right lower pole of the kidney. Urine culture has no growth in 48 hours. Blood culture has no growth. Information on outpatient urinalysis and urine culture not available currently. Patient is a 62-year-old female, presented to the hospital per instructions by her primary care physician for further treatment of her urinary tract infection. According to the patient last July when she had surgery on her right hand, there was a urine culture done at that time which had E. coli. She was asymptomatic, and received 1 week of Cipro. After that surgery she had a bout of urinary tract infection, and this time she had some dysuria, and some fever and chills. She was again given Cipro. There was no culture done at that time. Patient moved to [place] last December, and she had her symptoms again , and she took some leftover Cipro with some mild improvement in her symptoms. She did not seek any medical help because at that time her insurance was not transferred over to [place]. It eventually got transferred, and she started having recurrent symptoms about a week prior to admission. She was having fever and chills, documented up to 104. She also did not have any dysuria, but had some urgency, and had occasional mild incontinence. She saw her primary care physician about 4 days prior to admission, and urine culture was done. She was given Keflex. The day prior to admission, patient was called and told to go to the hospital because her urine culture is growing a resistant bacteria. Patient is still having fevers. Her WBC was 14,000. She denies any hematuria. Denies any back pain, nausea or vomiting. Patient only has one kidney on the right Infectious disease consultation has been requested to evaluate the patient and assist with treatment. Past Family Social History Allergies: Coded Allergies: Penicillins (Verified Allergy, Unknown, 01/26/18) "rash head to toe" Sulfa (Sulfonamide Antibiotics) (Verified Allergy, Unknown, 01/26/18) rash "head to Toe" Past Medical History Congenital 1 kidney Vaginal prolapse Recurrent UTI since July 2017 Past Surgical History Hysterectomy in 2005. Had vaginal prolapse at that time Recurrent vaginal prolapse, repeat surgery in 2016 Right thumb surgery. Active Ordered Medications Current Medications Medications (Trade) Dose Ordered Sig/Trip Route PRN Reason Start Time Stop Time Status Last Admin Dose Admin Sodium Chloride (NS Flush) 2 ml UNSCH PRN IV FLUSH FLUSH AFTER USING IV ACCESS 01/26/18 14:45 Sodium Chloride (NS Flush) 2 ml BID IV FLUSH 01/26/18 21:00 01/27/18 21:09 Acetaminophen (Tylenol) 650 mg Q4H PRN PO TEMP > 100.4 01/26/18 14:45 01/27/18 04:10 Ondansetron HCl (Zofran Inj) 4 mg Q6H PRN IVP NAUSEA OR VOMITING 01/26/18 14:45 Heparin Sodium (Porcine) (Heparin Inj) 5,000 units Q8H SQ 01/26/18 16:00 01/26/18 15:54 Naloxone HCl (Narcan Inj) 0.4 mg UNSCH PRN IV PUSH SEE LABEL COMMENTS 01/26/18 14:45 Senna/Docusate Sodium (Ghislaine-Colace) 1 tab BID PO 01/26/18 21:00 Magnesium Hydroxide (Milk Of Magnesia Liq) 30 ml Q12H PRN PO Mild constipation 01/26/18 14:45 Sennosides (Senokot) 17.2 mg Q12H PRN PO Moderate constipation 01/26/18 14:45 Bisacodyl (Dulcolax Supp) 10 mg DAILY PRN RECTAL SEVERE CONSITIPATION 01/26/18 14:45 Lactulose (Lactulose Liq) 30 ml DAILY PRN PO SEVERE CONSITIPATION 01/26/18 14:45 Potassium Chloride/Sodium Chloride 1,000 ml @ 60 mls/hr [id number] IV 01/27/18 10:00 01/28/18 05:11 Meropenem 1000 mg/ Sodium Chloride 100 ml @ 200 mls/hr Q8H IV 01/27/18 12:00 01/28/18 05:10 Family History Noncontributory Social History Denies smoking Denies EtOH abuse No illicit drugs Objective. Vital Signs Date Time Temp Pulse Resp B/P (MAP) Pulse Ox O2 Delivery O2 Flow Rate FiO2 01/28/18 12:54 99.0 85 20 123/62 (82) 97 01/28/18 12:53 98.8 87 20 122/59 (80) 96 01/28/18 06:00 98.6 82 16 122/62 (82) 97 01/27/18 18:41 108 01/27/18 16:00 100.3 97 18 131/75 (93) 98 Date Time Temp Pulse Resp B/P (MAP) Pulse Ox O2 Delivery O2 Flow Rate FiO2 01/27/18 08:00 98.4 77 18 111/56 (74) 96 01/27/18 06:44 98.8 01/27/18 04:05 100.6 91 18 121/60 (80) 95 01/27/18 02:44 99.7 01/27/18 00:00 98.6 87 18 122/57 (78) 95 01/26/18 21:30 100.4 01/26/18 20:00 98.5 95 18 125/58 (80) 97 01/26/18 19:41 01/26/18 16:50 100.8 97 18 136/65 (88) 01/26/18 15:48 100.7 01/26/18 15:02 99.0 94 19 147/67 (93) 97 Room Air 01/26/18 14:11 149/65 (93) 01/26/18 12:30 94 17 96 01/26/18 11:40 101.9 94 16 142/70 (94) 98 Laboratory Tests Test 01/27/18 06:13 01/28/18 04:48 White Blood Count 10.3 TH/MM3 9.2 TH/MM3 Red Blood Count 3.36 MIL/MM3 3.85 MIL/MM3 Hemoglobin 10.7 GM/DL 12.1 GM/DL Hematocrit 30.2 % 35.0 % Mean Corpuscular Volume 90.0 FL 90.8 FL Mean Corpuscular Hemoglobin 31.8 PG 31.4 PG Mean Corpuscular Hemoglobin Concent 35.3 % 34.5 % Red Cell Distribution Width 12.3 % 12.3 % Platelet Count 419 TH/MM3 454 TH/MM3 Mean Platelet Volume 7.0 FL 7.1 FL Neutrophils (%) (Auto) 65.8 % 57.9 % Lymphocytes (%) (Auto) 25.9 % 34.2 % Monocytes (%) (Auto) 7.7 % 6.3 % Eosinophils (%) (Auto) 0.3 % 1.1 % Basophils (%) (Auto) 0.3 % 0.5 % Neutrophils # (Auto) 6.8 TH/MM3 5.3 TH/MM3 Lymphocytes # (Auto) 2.7 TH/MM3 3.1 TH/MM3 Monocytes # (Auto) 0.8 TH/MM3 0.6 TH/MM3 Eosinophils # (Auto) 0.0 TH/MM3 0.1 TH/MM3 Basophils # (Auto) 0.0 TH/MM3 0.0 TH/MM3 CBC Comment DIFF FINAL DIFF FINAL Differential Comment Laboratory Tests Test 01/26/18 14:58 01/27/18 06:13 01/28/18 04:48 Lactic Acid Level 1.1 mmol/L Blood Urea Nitrogen 5 MG/DL 9 MG/DL Creatinine 0.40 MG/DL 0.49 MG/DL Random Glucose 95 MG/DL 86 MG/DL Total Protein 5.9 GM/DL Albumin 2.5 GM/DL Calcium Level 7.2 MG/DL 8.6 MG/DL Alkaline Phosphatase 52 U/L Aspartate Amino Transf (AST/SGOT) 9 U/L Alanine Aminotransferase (ALT/SGPT) 12 U/L Total Bilirubin 0.3 MG/DL Sodium Level 142 MEQ/L 140 MEQ/L Potassium Level 3.4 MEQ/L 4.3 MEQ/L Chloride Level 110 MEQ/L 105 MEQ/L Carbon Dioxide Level 23.7 MEQ/L 25.0 MEQ/L Anion Gap 8 MEQ/L 10 MEQ/L Estimat Glomerular Filtration Rate 161 ML/MIN 128 ML/MIN Protein Corrected Calcium 7.8 MG/DL Magnesium Level 1.7 MG/DL 2.0 MG/DL Microbiology Date/Time Source Procedure Growth Status 01/26/18 11:05 Blood Peripheral Aerobic Blood Culture - Preliminary NO GROWTH IN 2 DAYS Resulted 01/26/18 11:05 Blood Peripheral Anaerobic Blood Culture - Preliminary NO GROWTH IN 2 DAYS Resulted 01/26/18 11:00 Blood Peripheral Aerobic Blood Culture - Preliminary NO GROWTH IN 2 DAYS Resulted 01/26/18 11:00 Blood Peripheral Anaerobic Blood Culture - Preliminary NO GROWTH IN 2 DAYS Resulted 01/26/18 10:55 Urine Clean Catch Urine Culture - Final NO GROWTH IN 48 HOURS. Complete Imaging: Abdomen/Pelvis CT 01/27/18 0000 Signed Impressions: Service Date/Time: Saturday, January 27, 2018 15:38 - CONCLUSION: Single kidney notable for a small nonspecific focus of diminished density and adjacent stranding involving the lower pole medial cortex with discussion as above. Jon Nugent MD Physical Exam GENERAL: Alert and oriented, no acute distress. HEENT: Pupils reactive to light. Extraocular movements intact. No icterus. Oropharynx mucosa moist. No lesions. NECK: Supple without adenopathy. No swelling. LUNGS: Clear to auscultation. HEART: S1 and S2 without murmurs or rubs or gallops. ABDOMEN: Bowel sounds present, soft, nontender. No costovertebral angle tenderness. EXTREMITIES: No clubbing cyanosis or edema. SKIN: No rash. NEUROLOGIC: Nonfocal. PSYCH: Calm and cooperative. IV line without evidence of infection. IMPRESSION Febrile illness, with complaints - current UA is unremarkable CT scan shows evidence suggesting pyelonephritis on the right. -Patient has solitary kidney. - ?complicated UTI, obstruction (however would expect creatinine higher if obstructed and has one kidney) - per Hx UC with Ecoli ESBL+ from 01/23 Rash with PCN and Sulfa, tolerates cephalosporins RECOMMENDATION Get UC report Repeat urine culture. Monitor blood culture. Continue Meropenem to cover E coli ESBL(+) Follow temps Monitor progress. I have explained to the patient that we need to definitely treat for infection particularly given the solitary kidney which is showing evidence of pyelonephritis on the CAT scan. Inflammation on the prior culture is needed to Make decisions going forward if the urine cultures obtained here remain negative. Patient expressed desire to go home. I spent time spent with the need to give adequate treatment and we need the information on the cultures including the new urine culture which will be ordered. Parish Steve MD January 28, 2018 13:24
--- NOTE | 2018-01-28 15:00 | HHI.PR ---
Subjective Remarks Follow-up UTI. She is feeling much better and wants to go home denies back pain. Discussed with ID Objective Vitals Vital Signs Date Time Temp Pulse Resp B/P (MAP) Pulse Ox O2 Delivery O2 Flow Rate FiO2 01/28/18 12:54 99.0 85 20 123/62 (82) 97 01/28/18 12:53 98.8 87 20 122/59 (80) 96 01/28/18 06:00 98.6 82 16 122/62 (82) 97 01/27/18 18:41 108 01/27/18 16:00 100.3 97 18 131/75 (93) 98 I/O 01/27/18 01/27/18 01/27/18 01/28/18 01/28/18 01/28/18 07:00 15:00 23:00 07:00 15:00 23:00 Intake Total 100 ml 400 ml Balance 100 ml 400 ml Intake IV Total 100 ml 400 ml Bladder Scan Volume Amount 10 ml # Voids 2 Result Diagram: 01/28/18 0448 01/28/18 0448 Imaging Last Impressions Abdomen/Pelvis CT 01/27/18 0000 Signed Impressions: Service Date/Time: Saturday, January 27, 2018 15:38 - CONCLUSION: Single kidney notable for a small nonspecific focus of diminished density and adjacent stranding involving the lower pole medial cortex with discussion as above. Jon Nugent MD Objective Remarks GENERAL: This is a well-nourished, well-developed patient, in no apparent distress. SKIN: No rashes, ecchymoses or lesions. Cool and dry. CARDIOVASCULAR: Regular rate and rhythm without murmurs, gallops, or rubs. RESPIRATORY: Clear to auscultation. Breath sounds equal bilaterally. No wheezes , rales, or rhonchi. GASTROINTESTINAL: Abdomen soft, non-tender, nondistended. No guarding. No CVA tenderness MUSCULOSKELETAL: Extremities without clubbing, cyanosis, or edema. No joint tenderness, effusion, or edema noted. No calf tenderness. Negative Homans sign bilaterally. NEUROLOGICAL: Awake and alert. Cranial nerves II through XII intact. Motor and sensory grossly within normal limits. Five out of 5 muscle strength in all muscle groups. Normal speech. Procedures none A/P Problem List: (1) Sepsis ICD Code: A41.9 - Sepsis, unspecified organism Status: Acute (2) Urinary tract infection ICD Code: N39.0 - Urinary tract infection, site not specified Status: Acute Assessment and Plan Sepsis. Clinically improving Urinary tract infection. CT scan shows right pyelonephritis with solitary kidney Patient meets sepsis criteria with fever, heart rate more than 90 and leukocytosis. Patient had a urine culture reportedly ESBL E. coli positive. History of penicillin and sulfa received Merrem in the ED Acetaminophen as needed for fever Zofran as needed for nausea. Discussed with ID, not ready for discharge to repeat urine culture and follow- up outpatient urine culture to guide therapy would likely need IV antibiotics after discharge Anemia without acute blood loss. Likely dilutional repeat CBC in the morning Hypokalemia. Resolved DVT prophylaxis with subcu heparin (patient refusing). SCD and early ambulation Discharge Planning When cleared by ID Problem Qualifiers (1) Sepsis: Qualified Codes: A41.51 - Sepsis due to Escherichia coli [e. coli] (2) Urinary tract infection: Qualified Codes: N10 - Acute pyelonephritis Adolfo Jackson MD January 28, 2018 15:00
[2018-01-28 20:23] VITALS: BP 133/69; PULSE 84; RESP 18; TEMP 99.8; O2SAT 96
[2018-01-29] VITALS (8 sets, daily range): BP systolic 116–152; BP diastolic 57–75; PULSE 77–93; RESP 16–18; TEMP 97.5–98.6; O2SAT 96–99
[2018-01-29] MEDS: MEROPENEM INJ 1,000 MG in SODIUM CHLORIDE 0.9% INJ 100 ML IV SCH ×3 (04:31→20:06)
[2018-01-29] MEDS: SODIUM CHLORIDE 0.9% FLUSH 10 ML FLUSH IV FLUSH SCH ×2 (09:00→20:06)
[2018-01-29] MEDS: DOCUSATE SODIUM 50 MG/SENNA 8.6 MG TAB PO SCH ×2 (09:00→20:07)
--- NOTE | 2018-01-29 16:16 | HHI.PR ---
Subjective Remarks Follow-up for ESBL urinary tract infection. Patient is currently doing well. Denies any chest pain, shortness of breath, fever or chills. Would like to go home when cleared by infectious disease. Objective Vitals Vital Signs Date Time Temp Pulse Resp B/P (MAP) Pulse Ox O2 Delivery O2 Flow Rate FiO2 01/29/18 12:00 98.3 77 18 131/70 (90) 97 01/29/18 08:00 98.1 88 18 116/58 (77) 97 01/29/18 04:00 97.5 82 17 117/61 (79) 99 01/29/18 02:14 93 01/29/18 00:00 98.0 88 17 121/57 (78) 98 01/28/18 20:23 99.8 84 18 133/69 (90) 96 I/O 01/28/18 01/28/18 01/28/18 01/29/18 01/29/18 01/29/18 07:00 15:00 23:00 07:00 15:00 23:00 Intake Total 100 ml 100 ml 580 ml Output Total 750 ml Balance -750 ml 100 ml 100 ml 580 ml Intake Oral 580 ml IV Total 100 ml 100 ml Output Urine Total 750 ml # Voids 1 3 2 Result Diagram: 01/28/18 0448 01/28/18 0448 Imaging Last Impressions Abdomen/Pelvis CT 01/27/18 0000 Signed Impressions: Service Date/Time: Saturday, January 27, 2018 15:38 - CONCLUSION: Single kidney notable for a small nonspecific focus of diminished density and adjacent stranding involving the lower pole medial cortex with discussion as above. Jon Nugent MD Objective Remarks GENERAL: Alert, oriented 3, NAD. SKIN: Warm and dry. HEAD: Normocephalic. EYES: No scleral icterus. No injection or drainage. NECK: Supple, trachea midline. No JVD or lymphadenopathy. CARDIOVASCULAR: Regular rate and rhythm without murmurs, gallops, or rubs. RESPIRATORY: Breath sounds equal bilaterally. No accessory muscle use. GASTROINTESTINAL: Abdomen soft, non-tender, nondistended. MUSCULOSKELETAL: No cyanosis, or edema. BACK: Nontender without obvious deformity. No CVA tenderness. Procedures none A/P Problem List: (1) Sepsis ICD Code: A41.9 - Sepsis, unspecified organism Status: Acute (2) Urinary tract infection ICD Code: N39.0 - Urinary tract infection, site not specified Status: Acute Assessment and Plan This is a 62-year-old female with past medical history significant for been poor with only the right kidney who presents to [facility] [place] complaining of fevers and chills. Infectious disease was consulted and patient has been receiving treatments for ESBL UTI. Sepsis - resolved. ESBL UTI - Currently on Meropenem every 8 hours. - Urine cx from 01/28/2018 shows no growth so far. - Will discuss with ID to see if we can switch to Ertapenem upon discharge marii if patient requires IV abx upon discharge. Hyperlipidemia - continue Atorvastatin 40mg QHS. Patient was on Simvastatin at home. Will switch to Atorvastatin upon discharge. Full code. Ambulation. D/C telemetry. Okay to shower. Problem Qualifiers (1) Sepsis: Qualified Codes: A41.51 - Sepsis due to Escherichia coli [e. coli] (2) Urinary tract infection: Qualified Codes: N10 - Acute pyelonephritis Magdaleno Freitas DO January 29, 2018 4:16 pm
[2018-01-29] MEDS ORDERED: ATORVASTATIN 40 MG TAB PO SCH (21:00)
[2018-01-30] MEDS: MEROPENEM INJ 1,000 MG in SODIUM CHLORIDE 0.9% INJ 100 ML IV SCH (04:15)
[2018-01-30 04:18] VITALS: BP 127/60; PULSE 74; RESP 16; TEMP 97.9; O2SAT 98
[2018-01-30 08:56] VITALS: BP 124/67; PULSE 83; RESP 20; TEMP 97.9; O2SAT 97
--- NOTE | 2018-01-30 09:28 | HHI.IDPN ---
Subjective Subjective Remarks Patient is a 62-year-old female, presented to the hospital per instructions by her primary care physician for further treatment of her urinary tract infection. According to the patient last July when she had surgery on her right hand, there was a urine culture done at that time which had E. coli. She was asymptomatic, and received 1 week of Cipro. After that surgery she had a bout of urinary tract infection, and this time she had some dysuria, and some fever and chills. She was again given Cipro. There was no culture done at that time. Patient moved to [place] last December, and she had her symptoms again , and she took some leftover Cipro with some mild improvement in her symptoms. She did not seek any medical help because at that time her insurance was not transferred over to [place]. It eventually got transferred, and she started having recurrent symptoms about a week prior to admission. She was having fever and chills, documented up to 104. She also did not have any dysuria, but had some urgency, and had occasional mild incontinence. She saw her primary care physician about 4 days prior to admission, and urine culture was done. She was given Keflex. The day prior to admission, patient was called and told to go to the hospital because her urine culture is growing a resistant bacteria. Patient is still having fevers. Her WBC was 14,000. She denies any hematuria. Denies any back pain, nausea or vomiting. Patient only has one kidney on the right Infectious disease consultation has been requested to evaluate the patient and assist with treatment. Notes reviewed Temps ok BC negative UC negative CT no obstruction, has an abnormality in R kidney, ?focal infection Spoke with her primary car eMD office and got verbal report of her UC E coli ESBL+ S to Primaxin, Zosyn, Gent, Tobramycin Antibiotics Merem Current Medications Medications (Trade) Dose Ordered Sig/Trip Route Start Time Stop Time Status Last Admin (NS Flush) 2 ml UNSCH PRN IV FLUSH 01/26/18 14:45 (NS Flush) 2 ml BID IV FLUSH 01/26/18 21:00 01/29/18 20:06 (Tylenol) 650 mg Q4H PRN PO 01/26/18 14:45 01/27/18 04:10 (Zofran Inj) 4 mg Q6H PRN IVP 5/10/18 14:45 (Narcan Inj) 0.4 mg UNSCH PRN IV PUSH 01/26/18 14:45 (Ghislaine-Colace) 1 tab BID PO 01/26/18 21:00 (Milk Of Magnesia Liq) 30 ml Q12H PRN PO 01/26/18 14:45 (Senokot) 17.2 mg Q12H PRN PO 01/26/18 14:45 (Dulcolax Supp) 10 mg DAILY PRN RECTAL 01/26/18 14:45 (Lactulose Liq) 30 ml DAILY PRN PO 01/26/18 14:45 Meropenem 1000 mg/ Sodium Chloride 100 ml @ 200 mls/hr Q8H IV 01/27/18 12:00 01/30/18 04:15 (Lipitor) 40 mg HS PO 01/29/18 21:00 01/29/18 20:06 Lines PIV with no evidence of infection Past Medical History Congenital 1 kidney Vaginal prolapse Recurrent UTI since July 2017 Past Surgical History Hysterectomy in 2005. Had vaginal prolapse at that time Recurrent vaginal prolapse, repeat surgery in 2016 Right thumb surgery. Allergies: Coded Allergies: Penicillins (Verified Allergy, Unknown, 01/26/18) "rash head to toe" Sulfa (Sulfonamide Antibiotics) (Verified Allergy, Unknown, 01/26/18) rash "head to Toe" Objective . Vital Signs Date Time Temp Pulse Resp B/P (MAP) Pulse Ox O2 Delivery O2 Flow Rate FiO2 01/30/18 08:56 97.9 83 20 124/67 (86) 97 01/30/18 04:18 97.9 74 16 127/60 (82) 98 01/29/18 23:42 98.6 88 16 116/59 (78) 97 01/29/18 19:33 98.6 86 18 152/75 (100) 97 01/29/18 16:56 98.3 80 18 140/71 (94) 96 01/29/18 12:00 98.3 77 18 131/70 (90) 97 . Microbiology Date/Time Source Procedure Growth Status 01/28/18 17:10 Urine Clean Catch Urine Culture - Preliminary NO GROWTH IN 24 HOURS. Resulted Imaging Last Impressions Abdomen/Pelvis CT 01/27/18 0000 Signed Impressions: Service Date/Time: Saturday, January 27, 2018 15:38 - CONCLUSION: Single kidney notable for a small nonspecific focus of diminished density and adjacent stranding involving the lower pole medial cortex with discussion as above. Jon Nugent MD Physical Exam GENERAL: Patient is a well-nourished, well-developed female, awake and alert , not in respiratory distress. SKIN: Warm and dry. No generalized rash, no ecchymoses and no evidence of embolic lesions. HEAD: Atraumatic. Normocephalic. No temporal wasting, or tenderness. EYES: [place] conjunctiva. No petechia or hemorrhage. Pupils equal, round and reactive to light. Extraocular movements full and intact. No scleral icterus. No injection or drainage. EARS, NOSE AND THROAT: Nose without bleeding or purulent nasal discharge. No sinus tenderness. Mucous membranes pink and moist. No oral lesions noted. No exudate. No oral thrush. NECK: Trachea midline. Supple and not tender, no meningeal signs CARDIOVASCULAR: Regular rate and rhythm. No murmurs, rubs or gallops heard RESPIRATORY: Clear to auscultation. Breath sounds equal bilaterally. No rales , wheezing or rhonchi ABDOMEN: Soft, non-tender, nondistended. Bowel sounds present and normoactive. No guarding. No rebound. No organomegaly. No bladder distension BACK: No CVA tenderness EXTREMITIES: No clubbing, cyanosis, or edema.No joint effusion, has good ROM. No calf tenderness. Well perfused and warm. NEUROLOGICAL: Awake and alert. Cranial nerves grossly intact. Motor grossly within normal limits. PSYCHIATRIC: Normal affect, calm and cooperative. LINE: No evidence of infection Assessment & Plan Remarks IMPRESSION Febrile illness, with complaints - current UA is unremarkable - has one kidney - no obstruction; has abnormal focus in her kidney - per Hx UC with Ecoli ESBL+ from 01/23 - LFT ok, no respiratory symptoms Rash with PCN and Sulfa, tolerates cephalosporins RECOMMENDATION Midline Arrange for home IV Abx Invanz x 10 more days on D/C Repeat CT in 3-4 weeks If recurrent UTI, consider urology evaluation as outpatient Explained plan to patient Spoke with CM to arrange for home IV Abx D/C once arrangements made Spent about 45 minutes with patient, explaining medical plan, and coordinating care with outsole caser, and performing all necessary medical decisions and plans for patient's care and discharge Samantha Tamayo MD January 30, 2018 09:28
[2018-01-30] MEDS ORDERED: ASP: Documented ESBL, MDR A baumannii or P. aeruginosa PRN (09:30)
[2018-01-30] MEDS ORDERED: PHARMACY INFORMATION XX PRN (09:30)
--- NOTE | 2018-01-30 09:30 | HHI.FF ---
Infusion Therapy Location of Infusion Therapy: Home Health Care IV Infusion Order Patient Information Patient Weight 62.5 kg Diagnosis: Diagnosis E coli UTI ESBL+ Coded Allergies: Penicillins (Verified Allergy, Unknown, 01/26/18) "rash head to toe" Sulfa (Sulfonamide Antibiotics) (Verified Allergy, Unknown, 01/26/18) rash "head to Toe" Administer Medication Ertapenem 1 gram IV q 24 hours Stop Treatment: February 09, 2018 Additional Information Venous access: Other (Midline) Additional Instructions [x] Peripheral flush and dressing changes per protocol [x] Implanted port and central spot welder line: * Implanted port: 10 ml Normal Saline followed by 5 ml Heparin 100 units/ml Heparin flush after each use and monthly to maintain. [] May leave port accessed during therapy. [] May leave peripheral site accessed for duration of therapy. [x] If patient has SOB or respiratory distress, check oxygen saturation. If less than 90% or clinical signs of respiratory distress, administer oxygen at 2 L/min. via nasal cannula and notify physician. [x] Anaphylaxis/Reaction orders: * Stop infusion. * Keep IV line open with saline flush. * Notify physician. * Monitor vital signs every 15 minutes until symptoms resolve. * Check Oxygen saturation; Oxygen at 2 L/min. via nasal cannula if less than 90% or clinical signs of respiratory distress. * Administer diphenhydramine (Benadryl) 25 mg IV STAT, (unless patient has received as pre-med). May repeat once, if necessary. * Solu-Cortef 250 mg IVP over 30-60 seconds, use 100 mg vials for each dissolution. * Epinephrine (1mg/1 ml) 0.3 mg subcutaneously or IVP now with any signs of respiratory distress. * Check with physician for new additional pre-med orders if patient is re- challenged or re-treated. [x] May remove PICC line when treatment complete, after confirming with Physician. [x] If the patient is admitted to the hospital, the ED, or transferred via [facility] , complete transfer form including medication reconciliation order sheet. Laboratory Tests Weekly Labs: CBC w/diff (labs on tuesdayFebruary 03 - copy to [facility] [employer]MINISTR[employer] and to nd ), Samantha Quiroz MD January 30, 2018 09:30
[2018-01-30] MEDS ORDERED: INVA1INJ IV (09:32)
[2018-01-30] MEDS: SODIUM CHLORIDE 0.9% FLUSH 10 ML FLUSH IV FLUSH SCH (09:33)
[2018-01-30] MEDS: DOCUSATE SODIUM 50 MG/SENNA 8.6 MG TAB PO SCH (09:33)
[2018-01-30] MEDS ORDERED: ERTAPENEM INJ 1,000 MG in SODIUM CHLORIDE 0.9% INJ 100 ML IV SCH (10:00)
--- NOTE | 2018-01-30 11:18 | HHI.FF ---
Face to Face Verification Diagnosis: (1) Urinary tract infection (2) Sepsis Home Health Nursing Order: Medical education Medication education-adverse effect Nursing assessment with vital signs IV medication administration I have seen patient Amy Burton on 01/30/18. My clinical findings support the need for the requested home health care services because: Ltd mobility - disease progression High risk of falls Infection w/ risk of complications I certify that my clinical findings support that this patient is homebound because: Need for psychosocial assistance [id number] bed/chair Unable to use public transportation Magdaleno Freitas DO January 30, 2018 11:18 am
--- NOTE | 2018-01-30 11:21 | HHI.DS ---
Discharge Summary Admission Date January 26, 2018 at 2:35 pm Discharge Date: January 30, 2018 Admitting Diagnosis urosepsis (1) Sepsis ICD Code: A41.9 - Sepsis, unspecified organism Status: Acute (2) Urinary tract infection ICD Code: N39.0 - Urinary tract infection, site not specified Status: Acute Procedures none Brief History - From Admission This is a 62-year-old female with past medical history significant for been poor with only the right kidney who presents to [facility] complaining of fevers and chills. The patient's states that back in July 2017 she had a UTI in which at that time E. coli was diagnosed. The patient was treated with ciprofloxacin. The patient states after that she had a repeat urinary tract infection in September 2017 for which he took ciprofloxacin treatment again. The patient states that she had recently moved to the area back in November of this year. The patient states she had some ciprofloxacin at home which he took. However she states that she started feeling aches and fevers, general malaise, fatigue and went to see her primary doctor. At that time a urine culture was obtained. The patient states that she went home however yesterday she had a temperature of 10 4F along with chills. The patient denies any nausea or vomiting. Per my discussion of the case with the ED department physician, she states that she saw the results of the urine culture and it showed ESBL E. coli. The patient otherwise denies any chest pain , shortness of breath, abdominal pain, nausea, vomiting, diarrhea. CBC/BMP: 01/28/18 0448 01/28/18 0448 Significant Findings Laboratory Tests Test 01/28/18 04:48 Red Blood Count 3.85 MIL/MM3 (4.00-5.30) Platelet Count 454 TH/MM3 (150-450) Creatinine 0.49 MG/DL (0.50-1.00) Imaging Last Impressions Abdomen/Pelvis CT 01/27/18 0000 Signed Impressions: Service Date/Time: Saturday, January 27, 2018 15:38 - CONCLUSION: Single kidney notable for a small nonspecific focus of diminished density and adjacent stranding involving the lower pole medial cortex with discussion as above. Jon Nugent MD PE at Discharge GENERAL: Alert, oriented 3, NAD. SKIN: Warm and dry. HEAD: Normocephalic. EYES: No scleral icterus. No injection or drainage. NECK: Supple, trachea midline. No JVD or lymphadenopathy. CARDIOVASCULAR: Regular rate and rhythm without murmurs, gallops, or rubs. RESPIRATORY: Breath sounds equal bilaterally. No accessory muscle use. GASTROINTESTINAL: Abdomen soft, non-tender, nondistended. MUSCULOSKELETAL: No cyanosis, or edema. BACK: Nontender without obvious deformity. No CVA tenderness. Pt update on day of discharge Patient is doing well. No acute concerns. No fever, chills. Ambulating well. Hospital Course This is a 62-year-old female with past medical history significant for been poor with only the right kidney who presents to [facility] complaining of fevers and chills. Infectious disease was consulted and patient has been receiving treatments for ESBL UTI. Sepsis - resolved. ESBL UTI - Received Meropenem every 8 hours. - Urine cx from 01/28/2018 shows no growth so far. - ID switched abx to Ertapenem to be continued until 02/09/2018. - Discussed with Patient's PCP and received fax report of the urine cx which shows ESBL E. Coli. - Repeat cultures negative. Hyperlipidemia - continue Atorvastatin 40mg QHS. Patient was on Simvastatin at home. Will switch to Atorvastatin upon discharge. Full code. Ambulation. Pt Condition on Discharge: Good Discharge Disposition: Disch w/ Home Health Serv Discharge Time: <= 30 minutes Discharge Instructions DIET: Follow Instructions for: As Tolerated, No Restrictions Activities you can perform: Regular-No Restrictions Follow up Referrals: PCP Follow-up - 10 Days New Medications: Ertapenem Inj (Invanz Inj) 1 Gm Addvial 1 GM IV Q24H for Infection for 10 Days, #10 INJECTION 0 Refills ADMINISTER IN 100ML NS Magdaleno Freitas DO January 30, 2018 11:21 am
[2018-01-30 12:59] VITALS: BP 133/73; PULSE 82; RESP 19; TEMP 98.3; O2SAT 96
[2018-01-30] MEDS ORDERED: ATOR40TA16 PO (13:40)
== END 2018-01-30 14:22 | disposition home health service (06) | DRG 872 ==
LOC: NEPC 09:34 → NEDA 14:35 → NEDH 18:33 → N05B 19:53
PROVIDERS: ADMIT Hospitalist; ATTEND Hospitalist
DX: A41.9 Sepsis, unspecified organism (principal); Q60.0 Renal agenesis, unilateral; N12 Tubulo-interstitial nephritis, not specified as acute or chronic; N39.0 Urinary tract infection, site not specified; B96.20 Unspecified Escherichia coli [E. coli] as the cause of diseases classified elsewhere; Z16.12 Extended spectrum beta lactamase (ESBL) resistance; D64.9 Anemia, unspecified; E78.5 Hyperlipidemia, unspecified
CPT/HCPCS: 36569; 74177; 80048; 80053; 81001; 83605; 83735; 85025; 87040; 87086; 93005; 99285; J1200; J1335; J1644; J2185; J3480; J7030; Q9963; Q9967